=== PATIENT | male | born 1955 | race Caucasian/White ===

== ENCOUNTER 2018-07-08 09:07 | Inpatient (IN) ==
--- NOTE | 2018-07-08 09:54 | ED ---
HPI General Chief complaint: Respiratory Symptoms Stated complaint: Poss FB in throat Time Seen by Provider: 07/08/18 09:15 Source: patient Mode of arrival: ambulatory Limitations: no limitations History of Present Illness HPI narrative: 62 y/o male states yesterday morning he was eating a breakfast burrito and ever since then he is unable to eat or drink or keep anything down. He states he has had this happen to him before ever since he was a kid but it usually goes away on its own. He denies any other concurrent complaints at this time. He denies ever having to have a scope for this. Onset (ago): day(s) Radiation: non-radiation Quality: burning Relieving factors: none Exacerbating factors: eating Treatments prior to arrival: Reports none Related Data Home Medications Medication Instructions Recorded Confirmed amiodarone 200 mg PO BID 07/08/18 07/08/18 apixaban [Eliquis] 5 mg PO BID 07/08/18 07/08/18 carvedilol [Coreg] 3.125 mg PO BID 07/08/18 07/08/18 famotidine [Pepcid] 20 mg PO BID 07/08/18 07/08/18 furosemide 40 mg PO DAILY 07/08/18 07/08/18 lisinopril 20 mg PO DAILY 07/08/18 07/08/18 spironolactone 20 mg PO DAILY 07/08/18 07/08/18 Allergies Allergy/AdvReac Type Severity Reaction Status Date / Time No Known Allergies Allergy Verified 07/08/18 09:46 Review of Systems ROS: all other systems reviewed are negative PMFSH History History Provided By: Patient (Notes 3 weeks ago had cardiac arrest and wearing LifeVest) Medical History Medical History Heart failure (Acute) Social History Social History Substance History: No History of Abuse Smoking Status: Former smoker How Often Do You Have a Drink Containing Alcohol: Never Recent Travel in [facility] within the Last 8 Weeks: No Recent Out of Country Travel within the Last 8 Weeks: No Immunization History Tetanus Immunization: Unsure Exam Narrative Exam Narrative: GENERAL: 62 y/o male in no apparent distress but having difficulty controlling his secretions SKIN: Focused skin assessment warm/dry. HEAD: Atraumatic. Normocephalic. EYES: Pupils equal and round. No scleral icterus. No injection or drainage. ENT: No nasal bleeding or discharge. Mucous membranes pink and moist. NECK: Trachea midline. CARDIOVASCULAR: Regular rate and rhythm. RESPIRATORY: No accessory muscle use. Clear to auscultation. Breath sounds equal bilaterally. GASTROINTESTINAL: Abdomen soft, non-tender, nondistended. MUSCULOSKELETAL: No obvious deformities. No clubbing. No cyanosis. NEUROLOGICAL: Awake and alert. Motor grossly within normal limits. Normal speech. PSYCHIATRIC: Appropriate mood and affect; insight and judgment normal. Course Reevaluation(s) Reevaluation #1: Try glucagon without change, patient agrees to scope Reevaluation #2: When BMP had resulted that showed acute renal failure with concurrent hyperkalemia patient was not in the room so called up to the OR and discuss case with anesthesiologist and updated GI specialist. Consultations Consultation #1: dr rivera agrees to egd and talked with patient at bedside Consultation #2: Anesthesiologist dr oliver states that she will order medications to optimize potassium and give IV fluids. She was notified of all critical lab results and given history and past medical history of patient. dr rivera was updated about lab work and my discussion with the anesthesiologist Consultation #3: dr fritz agrees to admit in intermediate care dr mcqueen will follow along Initial Documented Vital Signs Temperature 98.3 F 07/08/18 09:09 Pulse Rate 89 07/08/18 09:09 Blood Pressure 115/59 L 07/08/18 09:09 Pulse Oximetry 96 07/08/18 09:09 Last Documented Vital Signs Temperature 98.3 F 07/08/18 09:09 Pulse Rate 86 07/08/18 09:21 Respiratory Rate 18 07/08/18 09:21 Blood Pressure 113/67 07/08/18 09:24 Pulse Oximetry 95 07/08/18 11:02 Medical Decision Making MDM Narrative Medical decision making narrative: Patient given a cup of water and with one sip try to swallow but instantly spitted up and looked uncomfortable. Will place IV and try glucagon and discuss with GI Medical Screen Exam Complete: Yes Emergency Medical Condition: Yes Differential Diagnosis Differential Diagnosis: Food bolus causing blockage, stricture, gastritis, tear Lab Data Lab results reviewed: Yes I reviewed the patient's lab results. Result diagrams: 07/08/18 09:40 07/08/18 09:40 Lab Results 07/08/18 07/08/18 Range/Units 09:40 09:40 WBC 9.5 (4.0-11.0) th/mm3 RBC 4.68 (4.50-5.90) mil/mm3 Hgb 17.6 H (13.0-17.0) gm/dL Hct 48.3 (39.0-51.0) % MCV 103.0 H (80.0-100.0) fL MCH 37.6 H (27.0-34.0) pg MCHC 36.5 H (32.0-36.0) % RDW 13.6 (11.6-17.2) % Plt Count 458 H (150-450) th/mm3 MPV 8.6 (7.0-11.0) fL Prelim Diff (Auto) Slide review pending Neut % (Auto) 67.2 (16.0-70.0) % Lymph % (Auto) 15.1 (9.0-44.0) % [place] % (Auto) 15.9 H (0.0-8.0) % Eos % (Auto) 0.8 (0.0-4.0) % Baso % (Auto) 1.0 (0.0-2.0) % Neut # (Auto) 6.4 (1.8-7.7) th/mm3 Lymph # (Auto) 1.4 (1.0-4.8) th/mm3 [place] # (Auto) 1.5 H (0.0-0.9) th/mm3 Eos # (Auto) 0.1 (0.0-0.4) th/mm3 Baso # (Auto) 0.1 (0.0-0.2) th/mm3 WBC Differential . Diff Scan Auto diff confirmed Differential Comment . Sodium 129 L (136-145) meq/L Potassium 5.8 H (3.5-5.1) meq/L Chloride 94 L (98-107) meq/L Carbon Dioxide 27.8 (21.0-32.0) meq/L Anion Gap 7 (5-15) meq/L BUN 92 H (7-18) mg/dL Creatinine 5.68 H (0.60-1.30) mg/dL Estimated GFR 10 L (>89) mL/min Random Glucose 94 (74-106) mg/dL Calcium 9.3 (8.5-10.1) mg/dL Imaging Data Attestation: I personally reviewed and interpreted this imaging study as follows : Discharge Plan Discharge Disposition Patient Disposition: ED Admit(ED Internal Use Only) Discharge Details Diagnosis: Acute renal failure, Esophageal obstruction due to food impaction, Acute hyperkalemia Physicians Team ED Provider: Lupe Joiner Primary Care Provider: UNKNOWN, Attending Provider: Aurelio Fritz Status ED Status: Left Department Discharge Information Discharge Date/Time: 07/08/18 12:02
[2018-07-08 10:18] LABS: Baso # (Auto) 0.1 th/mm3 (0.0-0.2); Eos # (Auto) 0.1 th/mm3 (0.0-0.4); Eos % (Auto) 0.8 % (0.0-4.0); Hematocrit 48.3 % (39.0-51.0); Hemoglobin 17.6 gm/dL (13.0-17.0); Lymph # (Auto) 1.4 th/mm3 (1.0-4.8); Lymph % (Auto) 15.1 % (9.0-44.0); Mean Corpuscular Hemoglobin 37.6 pg (27.0-34.0); Mean Platelet Volume 8.6 fL (7.0-11.0); Mono # (Auto) 1.5 th/mm3 (0.0-0.9); Mono % (Auto) 15.9 % (0.0-8.0); Neut # (Auto) 6.4 th/mm3 (1.8-7.7); Neut % (Auto) 67.2 % (16.0-70.0); Platelet Count 458 th/mm3 (150-450); Red Blood Count 4.68 mil/mm3 (4.50-5.90); Red Cell Distribution Width 13.6 % (11.6-17.2); White Blood Count 9.5 th/mm3 (4.0-11.0)
[2018-07-08 10:20] LABS: Mean Corpuscular HGB Conc 36.5 % (32.0-36.0)
[2018-07-08 11:00] LABS: Calcium 9.3 mg/dL (8.5-10.1); Carbon Dioxide 27.8 meq/L (21.0-32.0); Potassium 5.8 meq/L (3.5-5.1)
[2018-07-08] MEDS ORDERED: Sod Chloride 0.9% Inj 1,000 ML IV.SIG SCH (11:30)
[2018-07-08] MEDS ORDERED: Acetaminophen 325 MG Tablet PO PRN (11:42)
[2018-07-08] MEDS ORDERED: Bisacodyl 10 MG Supp RECTAL PRN (11:42)
[2018-07-08] MEDS ORDERED: Ketamine Inj 50 MG/5 ML Syringe IV.PUSH ONE (12:57)
--- NOTE | 2018-07-08 14:04 | GIPROC ---
[facility] [address] [facility]. [facility], [address] EGD PROCEDURE REPORT EXAM DATE: 07/08/2018 PATIENT NAME: Andrew Acuna MR #: [id number] BIRTHDATE: 1955 ATTENDING: Cesar Leonardo MD ORDER #: [id number] IMPROVEMENT ANALYST: Christie Cobb and Karmen Klein STATUS: outpatient INDICATIONS: The patient is a 62 yr old male here for an EGD due to foreign body removal from esophagus PROCEDURE PERFORMED: EGD w/ fb removal MEDICATIONS: Per Anesthesia and None. TOPICAL ANESTHETIC: none CONSENT: The patient understands the risks and benefits of the procedure and understands that these risks include, but are not limited to: sedation, allergic reaction, infection, perforation and/or bleeding. Alternative means of evaluation and treatment include, among others: physical exam, x-rays, and/or surgical intervention. The patient elects to proceed with this endoscopic procedure. medical equipment was checked for proper function. Hand hygiene and appropriate measures for infection prevention was taken. After the risks, benefits and alternatives of the procedure were thoroughly explained, Informed consent was verified, confirmed and timeout was successfully executed by the treatment team. The patient was anesthetized with topical anesthesia and the Pentax [id number] endoscope was introduced through the mouth and advanced to the second portion of the duodenum. Retroflexion was performed and was normal The gastroscope was then slowly withdrawn and removed. ESOPHAGUS: There was a large amount of residual food seen in the mid esophagus. A Schatzki ring was found in the mid esophagus and distal esophagus and was not passable by the endoscope used. Using a TTS-balloon the stricture was dilated up to 10mm. The balloon was held inflated for 30 seconds. Following this dilation, there was no change in the appearance of the stricture. A medium sized hiatal hernia was noted. Using a TTS-balloon the stricture was dilated up to 13mm. The balloon was held inflated for 30 seconds. Following this dilation, there was a small mucosal rent. STOMACH: The mucosa of the stomach appeared normal. DUODENUM: The duodenal mucosa appeared normal. ADVERSE EVENTS: There were no complications. IMPRESSIONS: 1. There was a large amount of residual food seen in the mid esophagus 2. Schatzki ring was found in the mid esophagus and distal esophagus; Using a TTS-balloon the stricture was dilated up to 10mm; The balloon was held inflated for 30 seconds; Following this dilation, there was no change in the appearance of the stricture, 12mm with no change, then 13.5 with small mucosal rent, scope passed afterward. 3. Medium sized hiatal hernia 4. The mucosa of the stomach appeared normal 5. Normal duodenal mucosa RECOMMENDATIONS: Liquid diet PATIENT CONDITION: stable DISPOSITION: Observation REPEAT EXAM: Return 8 weeks EGD Cesar Leonardo MD eSigned: Cesar Leonardo MD 07/08/2018 2:03 PM cc: PATIENT NAME: Andrew Acuna MR#: [id number]
--- NOTE | 2018-07-08 15:15 | US ---
EXAM DATE: 07/08/2018 2:40 PM EST AGE/SEX: 62 years / Male INDICATIONS: Increased lab values. CLINICAL DATA: This is the patient's initial encounter. Patient reports that signs and symptoms have been present for 1 day and indicates a pain score of 0/10. MEDICAL/SURGICAL HISTORY: Congestive heart failure. None. COMPARISON: No prior exams available for comparison. MEASUREMENTS: Right Kidney:__11.2 x 4.8 x 4.6 cm Left Kidney:__11.8 x 4.3 x 5.3 cm FINDINGS: Right Kidney: Normal echotexture and cortical thickness. No mass or hydronephrosis. Left Kidney: Normal echotexture and cortical thickness. No mass or hydronephrosis. Bladder: Within normal limits given the degree of distension. Other: None. CONCLUSION: 1. Negative renal sonogram. Electronically signed by: Donnie Rea MD 07/08/2018 3:13 PM EST
[2018-07-08] MEDS ORDERED: fentaNYL Citrate Inj 100 MCG/2 ML Ampul ONE (15:25)
--- NOTE | 2018-07-08 15:41 | P.HP ---
History of Present Illness Primary Care Physician: UNKNOWN Chief Complaint: Possible foreign body in the throat History of Present Illness: This is a 62-year-old male with a history of nonischemic cardiomyopathy status post cardiac catheterization on LifeVest and A. fib on Eliquis. Presents to ED for possible foreign body in the throat. Since yesterday morning after having breakfast burrito, he has not been able to eat or drink or keep anything down. States he always has problems swallowing pills. Denies chest pain, shortness of breath, abdominal pain, dizziness and palpitations. He was also found to be in acute renal failure BUN of 92 creatinine 5.68 and potassium of 5.8. EKG independently reviewed by me with sinus rhythm, IVCD with no significant change from previous. Denies voiding difficulties, history of renal failure and use of NSAIDs. He has been recently started on furosemide, Aldactone and lisinopril because of heart failure. Patient received IV fluid bolus in the ED and underwent urgent EGD for removal of foreign body impaction in the esophagus after treatment of hyperkalemia. At this time, patient has no complaints seen in [facility]. Telemetry shows sinus rhythm. Systolic blood pressure in the 90s. All other systems reviewed negative. Case discussed with nephrology. Inpatient Certification: I certify that the inpatient services were ordered in accordance with Medicare regulations governing the order. This includes certification that hospital inpatient services are reasonable and necessary and in the case of services not specified as inpatient-only under 42 CFR 419.22(n), that they are appropriately provided as inpatient services in accordance to with the 2-midnight benchmark under 43 CFR 412.3(e) Estimated Total Length of Stay (Days): 2 Plans for Post Hospital Care: Not yet determined Review of Systems All other systems reviewed negative except as stated in HPI PMFSH - History History Provided By: Patient, Significant Other - Medical History Medical History: Medical History (Last Reviewed 07/08/18 @ 15:35 by Aurelio Fritz MD) Cardiac arrest GERD (gastroesophageal reflux disease) Schatzki's ring Heart failure - Surgical History Surgical History: Surgical History (Last Reviewed 07/08/18 @ 15:35 by Aurelio Fritz MD) Hx of cardiac cath - Family History Family History: Family History (Last Updated 07/08/18 @ 15:35 by Aurelio Fritz MD) Other Family history of acute myocardial infarction - Social History I have reviewed the patient's Social History: Yes - Tobacco History Second Hand Smoke Exposure: Yes Tobacco Use In Past 30 Days: Yes Smoking Status: Former smoker Tobacco Type: Cigarettes - Alcohol History How Often Do You Have a Drink Containing Alcohol: 2 to 3 times a week - Substance Use History Substance History: No History of Abuse - Travel History Recent Travel in the [place] Within the Last 8 Weeks: No Recent Travel Out of the Country Within the Last 8 Weeks: No - Immunization History Tetanus Immunization: Unsure Medications and Allergies Active Medications: Active Medications Acetaminophen (Tylenol) 650 mg PO Q4H PRN PRN Reason: Temp > 100.4 Amiodarone HCl (Cordarone) 200 mg PO BID CONSTANTINE Apixaban (Eliquis) 5 mg PO BID CONSTANTINE Bisacodyl (Dulcolax Supp) 10 mg RECTAL DAILY PRN PRN Reason: SEVERE CONSITIPATION Carvedilol (Coreg) 3.125 mg PO BID CONSTANTINE Famotidine (Pepcid) 10 mg PO BID CONSTANTINE Sodium Chloride (Ns Inj) 1,000 mls @ 60 mls/hr IV.CONT .[id number] CONSTANTINE Lactulose (Lactulose Liq) 30 ml PO DAILY PRN PRN Reason: SEVERE CONSITIPATION Miscellaneous Information (Misc Nursing Information) 0 each OTHER UNSCH PRN PRN Reason: SEE LABEL COMMENTS Stop: 07/09/18 14:11 Ondansetron HCl (Zofran Inj) 4 mg IV.PUSH Q6H PRN PRN Reason: NAUSEA OR VOMITING Senna/Docusate Sodium (Genoveva-Colace) 1 tab PO BID CONSTANTINE Sennosides (Senokot) 17.2 mg PO Q12H PRN PRN Reason: Moderate Constipation Sodium Chloride (Ns Flush) 2 ml IV.FLUSH BID CONSTANTINE Sodium Chloride (Ns Flush) 2 ml IV.FLUSH PRN PRN PRN Reason: FLUSH AFTER USING IV ACCESS Allergies Allergy/AdvReac Type Severity Reaction Status Date / Time No Known Allergies Allergy Verified 07/08/18 09:46 Home Medications Medication Instructions Recorded Confirmed Type amiodarone 200 mg PO BID 07/08/18 07/08/18 History apixaban [Eliquis] 5 mg PO BID 07/08/18 07/08/18 History carvedilol [Coreg] 6.25 mg PO BID 07/08/18 07/08/18 History famotidine [Pepcid] 20 mg PO BID 07/08/18 07/08/18 History furosemide 40 mg PO DAILY 07/08/18 07/08/18 History lisinopril 20 mg PO DAILY 07/08/18 07/08/18 History spironolactone 20 mg PO DAILY 07/08/18 07/08/18 History Exam Vital signs: Vital Signs 07/08/18 09:09 07/08/18 09:21 07/08/18 09:24 Temperature 98.3 F Pulse Rate 89 86 Respiratory Rate 18 Blood Pressure 115/59 L 113/67 Pulse Oximetry 96 95 07/08/18 11:02 07/08/18 12:00 Temperature Pulse Rate 79 Respiratory Rate 20 Blood Pressure 90/52 L Pulse Oximetry 95 99 Intake & Output 07/07/18 07/08/18 07/08/18 18:59 06:59 18:59 Intake Total 1999 Balance 1999 Weight 81.64 kg Intake: IV 1000 / 1000 NS Inj 1,000 ML @ 1000 mls/hr 1000 / 1000 IV.SIG BOLUS [facility] Rx#:[id number] Anesthesia Amount 1000 / 1000 Other: Weight On Admission 81.647 kg Narrative: GENERAL: Well-developed, well-nourished in no distress SKIN: Warm and dry. HEAD: Atraumatic. Normocephalic. EYES: Pupils equal and round. No scleral icterus. No injection or drainage. ENT: No nasal bleeding or discharge. Mucous membranes pink and moist. NECK: Trachea midline. No JVD. CARDIOVASCULAR: Regular rate and rhythm. LifeVest in place RESPIRATORY: No accessory muscle use. Clear to auscultation. Breath sounds equal bilaterally. GASTROINTESTINAL: Abdomen soft, non-tender, nondistended. MUSCULOSKELETAL: Extremities without clubbing, cyanosis, or edema. No obvious deformities. NEUROLOGICAL: Awake and alert. No obvious cranial nerve deficits. Motor grossly within normal limits. Five out of 5 muscle strength in the arms and legs. Normal speech. PSYCHIATRIC: Appropriate mood and affect; insight and judgment normal. Results - Labs CBC & Chem 7: 07/08/18 09:40 07/08/18 09:40 Labs: Laboratory Results - last 24 hr 07/08/18 07/08/18 09:40 09:40 WBC 9.5 RBC 4.68 Hgb 17.6 H Hct 48.3 MCV 103.0 H MCH 37.6 H MCHC 36.5 H RDW 13.6 Plt Count 458 H MPV 8.6 Prelim Diff (Auto) Slide review pending Neut % (Auto) 67.2 Lymph % (Auto) 15.1 [place] % (Auto) 15.9 H Eos % (Auto) 0.8 Baso % (Auto) 1.0 Neut # (Auto) 6.4 Lymph # (Auto) 1.4 [place] # (Auto) 1.5 H Eos # (Auto) 0.1 Baso # (Auto) 0.1 WBC Differential . Diff Scan Auto diff confirmed Differential Comment . Sodium 129 L Potassium 5.8 H Chloride 94 L Carbon Dioxide 27.8 Anion Gap 7 BUN 92 H Creatinine 5.68 H Estimated GFR 10 L Random Glucose 94 Calcium 9.3 - Imaging Impressions Abdomen/Bladder Ultrasound 07/08/18 00:00 CONCLUSION: 1. Negative renal sonogram. Caprini VTE Risk Assessment Caprini VTE Risk Assessment: Moderate/High Risk (score >= 2) Caprini Risk Assessment Model: Point Value = 1 Point Value = 2 Point Value = 3 Point Value = 5 Age 41-60 Minor surgery BMI > 25 kg/m2 Swollen legs Varicose veins or History of unexplained or recurrent spontaneous Oral contraceptives or hormone replacement Sepsis (< 1 month) Serious lung disease, including pneumonia (< 1 month) Abnormal pulmonary function Acute myocardial infarction Congestive heart failure (< 1 month) History of inflammatory bowel disease Medical patient at bed rest Age 61-74 Arthroscopic surgery Major open surgery (> 45 min) Laparoscopic surgery (> 45 min) Malignancy Confined to bed (> 72 hours) Immobilizing plaster cast Central venous access Age >= 75 History of VTE Family history of VTE Factor V Leiden Prothrombin [id number] Lupus anticoagulant Anticardiolipin antibodies Elevated serum homocysteine Heparin-induced thrombocytopenia Other congenital or acquired thrombophilia Stroke (< 1 month) Elective arthroplasty Hip, pelvis, or leg fracture Acute spinal cord injury (< 1 month) Prophylaxis Regimen: Total Risk Factor Score Risk Level Prophylaxis Regimen 0-1 Low Early ambulation 2 Moderate Order ONE of the following: *Sequential Compression Device (SCD) *Heparin 5000 units SQ BID 3-4 Higher Order ONE of the following medications: *Heparin 5000 units SQ TID *Enoxaparin/Lovenox 40 mg SQ daily (WT < 150 kg, CrCl > 30 mL/min) *Enoxaparin/Lovenox 30 mg SQ daily (WT < 150 kg, CrCl > 10-29 mL/min) *Enoxaparin/Lovenox 30 mg SQ BID (WT < 150 kg, CrCl > 30 mL/min) AND/OR *Sequential Compression Device (SCD) 5 or more Highest Order ONE of the following medications: *Heparin 5000 units SQ TID (Preferred with Epidurals) *Enoxaparin/Lovenox 40 mg SQ daily (WT < 150 kg, CrCl > 30 mL/min) *Enoxaparin/Lovenox 30 mg SQ daily (WT < 150 kg, CrCl > 10-29 mL/min) *Enoxaparin/Lovenox 30 mg SQ BID (WT < 150 kg, CrCl > 30 mL/min) AND *Sequential Compression Device (SCD) Assessment and Plan - Plan This is a 62-year-old male with a history of nonischemic cardiomyopathy status post cardiac catheterization on LifeVest and A. fib on Eliquis. Presents to ED for possible foreign body in the throat. Foreign body impaction in the esophagus status post EGD with foreign body removal. Continue liquid diet advance per GI, start IV hydration monitor for fluid overload and PPI. Acute renal failure with hyponatremia and hyperkalemia. Nonoliguric. Ultrasound showed no obstruction. Check urinalysis and eosinophils. Continue IV hydration as above. Avoid nephrotoxins hold lisinopril, Aldactone and Lasix. Consult nephrology. Repeat BMP stat monitor on telemetry DVT proph with SCD and Eliquis Discharge Planning: When renal function improves
[2018-07-08] MEDS: Sod Chloride 0.9% Inj 1,000 ML IV.CONT SCH (16:08)
[2018-07-08 16:47] LABS: Baso % (Auto) 0.5 % (0.0-2.0); Eos % (Auto) 0.2 % (0.0-4.0); Hematocrit 44.6 % (39.0-51.0); Hemoglobin 15.4 gm/dL (13.0-17.0); Lymph # (Auto) 0.6 th/mm3 (1.0-4.8); Lymph % (Auto) 6.1 % (9.0-44.0); Mean Corpuscular HGB Conc 34.5 % (32.0-36.0); Mean Corpuscular Hemoglobin 35.4 pg (27.0-34.0); Mean Corpuscular Volume 102.6 fL (80.0-100.0); Mean Platelet Volume 8.2 fL (7.0-11.0); Mono # (Auto) 0.6 th/mm3 (0.0-0.9); Mono % (Auto) 6.4 % (0.0-8.0); Neut % (Auto) 86.8 % (16.0-70.0); Platelet Count 395 th/mm3 (150-450); Red Blood Count 4.34 mil/mm3 (4.50-5.90); Red Cell Distribution Width 13.5 % (11.6-17.2); White Blood Count 9.3 th/mm3 (4.0-11.0)
[2018-07-08 17:10] LABS: Calcium 8.4 mg/dL (8.5-10.1); Carbon Dioxide 24.2 meq/L (21.0-32.0); Magnesium 3.2 mg/dL (1.5-2.5); Potassium 6.5 meq/L (3.5-5.1)
[2018-07-08] MEDS ORDERED: Sodium Polystyrene Sulfonate/Sorbitol Liq 15 GM/60 ML UDC PO ONE ×2 (18:15→22:00)
[2018-07-08] MEDS ORDERED: Sodium Bicarbonate 8.4% Inj 50 MEQ/50 ML Syringe IV.PUSH ONE (18:15)
[2018-07-08] MEDS ORDERED: Calcium Chloride Inj 1 GM/10 ML Syringe IV.PUSH ONE (18:15)
[2018-07-08] MEDS ORDERED: Sodium Chlor 0.9% Inj 500 ML IV.SIG ONE (19:33)
--- NOTE | 2018-07-08 19:44 | MB ---
cc: Cesar Leonardo MD DATE: 07/08/2018 TYPE OF CONSULTATION: GI consult. REASON FOR CONSULTATION: Foreign body impaction. HISTORY OF PRESENT ILLNESS: This is a 62-year-old male patient, known case of nonischemic cardiomyopathy who had cardiac catheterization 3 weeks ago and also known to have atrial fibrillation, on Eliquis. The patient presented to the emergency room after eating a burrito for breakfast yesterday. Since that time has been unable to swallow anything down, including his own saliva. The patient is very uncomfortable and is drooling all the time. GI is consulted for further evaluation and possible removing of a foreign body. REVIEW OF SYSTEMS: All 14 points review of systems negative, except the ones mentioned in the history of present illness. PAST MEDICAL HISTORY: 1. Cardiomyopathy. 2. History of atrial fibrillation. 3. Gastroesophageal reflux disease. 4. Heart failure. PAST SURGICAL HISTORY: History of cardiac catheterization 3 weeks ago. No previous endoscopy or colonoscopy in the past. FAMILY HISTORY: Positive for acute ID in his first-degree relative. SOCIAL HISTORY: The patient is an ex-smoker, drinks alcohol infrequently. Denies IV drug abuse. MEDICATIONS: 1. Amiodarone. 2. Eliquis. 3. Carvedilol. 4. Promethazine. 5. Lactulose. 6. Zofran. 7. Colace. ALLERGIES: NO KNOWN DRUG ALLERGIES. PHYSICAL EXAMINATION: GENERAL: The patient was found to be comfortable, not in distress or in pain. Hemodynamically stable. VITAL SIGNS: Temperature 98.3, pulse 89, respiratory rate of 18, blood pressure 115/60. HEENT: Normocephalic, atraumatic. Pupils equal, round, reactive to light. NECK: Supple neck. No lymphadenopathy. No thyromegaly. CHEST: Labored breathing, difficulty and taking deep breath, but good air entry bilaterally. HEART: Regular rate and rhythm, with no murmurs. ABDOMEN: Soft, nontender. No hepatosplenomegaly. No palpable masses. EXTREMITIES: Normal pulses. No edema. NEUROLOGIC: Cranial nerves 2-12 grossly intact. No focal deficits. SKIN: No rashes. LABORATORY DATA: Pending. ASSESSMENT AND PLAN: This is a 62-year-old male patient with history of the following problems: 1. Food impaction of several hours duration, causing excessive salivation and inability to swallow. 2. History of recurrent dysphagia for several years. Never investigated before. 3. Chronic gastroesophageal reflux. 4. Significant cardiac history in the form of cardiomyopathy requiring anticoagulation. RECOMMENDATION: We will keep him n.p.o. for the time being. We will proceed with endoscopic evaluation and food removal and possible dilatation of the esophagus. Depending upon the findings, we will continue the patient on the current treatment plan. Check labs were sent and are pending. Check EKG. Anesthesia clearance. Further recommendations to follow. MD CHRISSY Proctor/nba , 05:56 PM , 06:07 PM
[2018-07-08] MEDS: Famotidine 20 MG Tablet PO SCH (20:01)
[2018-07-08] MEDS: Amiodarone 200 MG Tablet PO SCH (20:01)
[2018-07-08] MEDS: Senna/Docusate Sodium 8.6/50 MG Tablet PO SCH (20:05)
[2018-07-08 20:33] LABS: Bilirubin,Urine Negative (Negative); Clarity,Urine Hazy (Clear); Color,Urine Yellow (Yellw/Straw); Glucose,Urine (UA) Negative (Negative); Hyaline Casts,Urine 32 /lpf (0-3); Leukocyte Esterase,Urine Negative (Negative); Mucus,Urine Few /lpf (Occasional); Nitrite,Urine Negative (Negative); Specific Gravity,Urine 1.017 (1.002-1.035); Squamous Epithelial Cell,Urine 1 /hpf (0-5)
[2018-07-08] MEDS ORDERED: Calcium Gluconate Inj 1 GM in Sodium Chlor 0.9% Inj 100 ML IV.SIG ONE (22:00)
[2018-07-08 22:49] LABS: Potassium,Urine Random 25 meq/L; Sodium,Urine Random 59 meq/L
--- NOTE | 2018-07-08 23:36 | MB ---
cc: Ivon Garcia MD DATE: 07/08/2018 REASON FOR CONSULTATION: Elevated BUN and creatinine, for evaluation. HISTORY OF PRESENT ILLNESS: This is a 62-year-old male with a past medical history of nonischemic cardiomyopathy, atrial fibrillation, gastroesophageal reflux disease, was admitted mainly because of possible foreign body in the throat. I was called to see the patient because of very high BUN and creatinine. The patient denies any previous history of renal disease and his creatinine in January of this year was 0.8 and now he came with a creatinine of 5.6 and also has hyperkalemia with a potassium of 5.8 on admission and now it is 6.5. The patient denies any previous history of renal disease and he has been followed by the cardiology and since yesterday he noticed that he is not able to eat or bring anything down and has some pain in his throat and feels like there is something stuck in his throat. He has been recently started on diuretic including Lasix, Aldactone and lisinopril because of the heart failure. In the emergency department, the patient was given bolus IV fluid and he went for urgent endoscopy with removal of foreign body impacted in the esophagus. He also got some treatment for hyperkalemia in the emergency department. The patient denies any dysuria or hematuria, did not notice any decrease in the urine output. There is no history of renal stones. Denies taking any nonsteroidal anti-inflammatory drugs. PAST MEDICAL HISTORY: 1. Cardiomyopathy, nonischemic. 2. Gastroesophageal reflux disease. 3. History of cardiac arrest. PAST SURGICAL HISTORY: 1. History of cardiac cath. 2. Just had endoscopy done. REVIEW OF SYSTEMS: The patient denies any history of headache, dizziness or blurring of vision. No history of fever. He has this foreign body impaction and difficulty swallowing in throat, it started yesterday. He denies any nausea or vomiting. There is no history of diarrhea. No shortness of breath. No chest pain. No abdominal pain. No history of dysuria, hematuria or difficulty in passing urine. Denies taking any nonsteroid anti-inflammatory drugs. Did not notice any decrease in the urine output. SOCIAL HISTORY: The patient is . Has past history of smoking. Occasionally drinks alcoholic beverages. FAMILY HISTORY: Noncontributory. ALLERGIES: HE HAS NO KNOWN DRUG ALLERGIES. MEDICATIONS: Currently, he is on following medications: 1. Tylenol as needed. 2. DuoNeb as needed. 3. Eliquis 5 mg b.i.d. 4. Cordarone 200 mg b.i.d. 5. Dulcolax suppository p.r.n. 6. Coreg 3.125 mg p.o. b.i.d. 7. Famotidine 10 mg b.i.d. 8. Lactulose 30 mL p.r.n. 9. Zofran as needed. 10. Genoveva-Colace one tablet b.i.d. 11. The patient received Kayexalate and supposed to get another dose around 10 p.m. 12. He also received calcium gluconate, sodium bicarbonate. PHYSICAL EXAMINATION: GENERAL: The patient is awake, alert. He is not in acute distress. VITAL SIGNS: His last blood pressure recorded is 124/69, but he has some low blood pressure readings of 81/51 in between, temperature is 97.4, oxygen saturation on 2 liters nasal cannula 96-100%. HEENT: Pupils are mid constricted. Nonicteric sclerae. Conjunctivae normal. NECK: Supple. JVD is not elevated. LUNGS: He has bilateral equal air entry with occasional wheezing. HEART: S1, S2. Regular rate and rhythm. ABDOMEN: Soft and lax. There is no tenderness. Bowel sounds positive. EXTREMITIES: There is no pedal edema. INVESTIGATIONS: WBC count is 9.3, hemoglobin 15.4 with platelet count of 395, neutrophils 86%, eosinophils 0.2%. Sodium is 131, potassium 6.5, chloride 98, bicarbonate 24.2, BUN 90, creatinine 5.76, calcium is 8.4, magnesium is 3.2. Urinalysis showing that there is protein of 30. Previously, the patient has a creatinine of 0.8. This was on 02/03/2018. IMAGING STUDIES: The patient has ultrasound of kidneys done, which shows that he has normal-sized kidneys. There is no hydronephrosis. There is no distention of the bladder. ASSESSMENT AND PLAN: 1. Acute kidney injury. 2. Hyperkalemia. 3. Impacted foreign body in the throat. 4. Dehydration. 5. History of cardiomyopathy. The patient has a very high BUN and creatinine. Previously, he has normal creatinine. He does not have too much proteinuria. He has hyperkalemia, which is possibly due to the lisinopril and spironolactone that he was taking. I will check the urine sodium, osmolality and urine potassium. I will give him more treatment for the hyperkalemia and put him on some gentle hydration and follow the urine output and the BUN and creatinine. If potassium and the BUN and creatinine does not improve, he may really need urgent dialysis. We will keep a close eye on the urine output and the BMP. Thank you for the consultation. I will follow the patient while he is in the hospital. MD KEN Sylvester/zeinab/veronica , 08:35 PM , 08:46 PM
[2018-07-09 00:34] LABS: Calcium 9.2 mg/dL (8.5-10.1); Carbon Dioxide 24.6 meq/L (21.0-32.0); Magnesium 2.9 mg/dL (1.5-2.5); Potassium 5.3 meq/L (3.5-5.1)
[2018-07-09] MEDS ORDERED: Sodium Polystyrene Sulfonate Powder 15 GM Bottle PO ONE (05:00)
--- NOTE | 2018-07-09 08:15 | P.PN ---
Subjective Interval history: F/U FB impaction and ARF. Patient has no new complaints tolerating liquid diet. Voiding. Discussed with nephrology. Physical Exam Vital signs: Vital Signs 07/08/18 09:09 07/08/18 09:21 07/08/18 09:24 Temperature 98.3 F Pulse Rate 89 86 Respiratory Rate 18 Blood Pressure 115/59 L 113/67 Pulse Oximetry 96 95 07/08/18 11:02 07/08/18 12:00 07/08/18 14:10 Temperature 98.3 F Pulse Rate 79 87 Respiratory Rate 20 18 Blood Pressure 90/52 L 125/76 Pulse Oximetry 95 99 100 07/08/18 14:30 07/08/18 14:45 07/08/18 20:00 Temperature 98.4 F 97.4 F L Pulse Rate 81 79 77 Respiratory Rate 20 15 16 Blood Pressure 81/51 L 82/52 L 124/69 Pulse Oximetry 100 100 96 07/08/18 21:03 07/08/18 23:05 07/09/18 00:00 Temperature 97.8 F Pulse Rate 73 67 69 Respiratory Rate 16 20 15 Blood Pressure 107/60 Pulse Oximetry 96 96 07/09/18 04:00 07/09/18 08:00 Temperature 98.2 F Pulse Rate 54 L 61 Respiratory Rate 15 Blood Pressure 111/58 L Pulse Oximetry 98 Intake & Output 07/08/18 07/09/18 07/09/18 18:59 06:59 18:59 Intake Total 2960 / 2960 350 / 350 Output Total 1100 / 1100 Balance 2960 / 2960 -750 / -750 Weight 81.64 kg 81.5 kg Intake: IV 1000 / 1000 110 / 110 Calcium Gluconate Inj 1 GM In 110 / 110 NS Inj 100 ML @ 110 mls/hr IV. SIG ONCE ONE Rx#:[id number] NS Inj 1,000 ML @ 1000 mls/hr 1000 / 1000 IV.SIG BOLUS [facility] Rx#:[id number] Oral 960 / 960 240 / 240 Anesthesia Amount 1000 / 1000 Output: Urine 1100 / 1100 Other: Date of Last Bowel Movement 07/07/18 Weight On Admission 81.647 kg Narrative: GENERAL: Well-developed, well-nourished in no distress SKIN: Warm and dry. CARDIOVASCULAR: Regular rate and rhythm. LifeVest in place RESPIRATORY: No accessory muscle use. Clear to auscultation. Breath sounds equal bilaterally. GASTROINTESTINAL: Abdomen soft, non-tender, nondistended. MUSCULOSKELETAL: Extremities without clubbing, cyanosis, or edema. No obvious deformities. NEUROLOGICAL: Awake and alert. No obvious cranial nerve deficits. Motor grossly within normal limits. Five out of 5 muscle strength in the arms and legs. Normal speech. PSYCHIATRIC: Appropriate mood and affect; insight and judgment normal. Results - Labs CBC & Chem 7: 07/08/18 16:14 07/09/18 06:55 Laboratory Results - last 24 hr 07/08/18 07/08/18 07/08/18 09:40 09:40 16:14 WBC 9.5 9.3 RBC 4.68 4.34 L Hgb 17.6 H 15.4 D Hct 48.3 44.6 MCV 103.0 H 102.6 H MCH 37.6 H 35.4 H MCHC 36.5 H 34.5 RDW 13.6 13.5 Plt Count 458 H 395 MPV 8.6 8.2 Prelim Diff (Auto) Slide review pending Neut % (Auto) 67.2 86.8 H Lymph % (Auto) 15.1 6.1 L Atlantic % (Auto) 15.9 H 6.4 Eos % (Auto) 0.8 0.2 Baso % (Auto) 1.0 0.5 Neut # (Auto) 6.4 8.0 H Lymph # (Auto) 1.4 0.6 L [place] # (Auto) 1.5 H 0.6 Eos # (Auto) 0.1 0.0 Baso # (Auto) 0.1 0.0 WBC Differential . . Diff Scan Auto diff confirmed Differential Comment . Auto diff final Sodium 129 L Potassium 5.8 H Chloride 94 L Carbon Dioxide 27.8 Anion Gap 7 BUN 92 H Creatinine 5.68 H Estimated GFR 10 L Random Glucose 94 Calcium 9.3 Magnesium Urine Color Urine Clarity Urine pH Ur Specific [place] Urine Protein Urine Glucose (UA) Urine Ketones Urine Occult Blood Urine Nitrate Urine Bilirubin Urine Urobilinogen Ur Leukocyte Esterase Urine RBC Urine WBC Ur Squamous Epith Cells Hyaline Casts Urine Mucus Micro UA Comment Ur Microscopic Review Urine Culture Comments Urine Eosinophils Urine Osmolality Ur Random Sodium Ur Random Potassium 07/08/18 07/08/18 07/08/18 16:14 18:28 22:15 WBC RBC Hgb Hct MCV MCH MCHC RDW Plt Count MPV Prelim Diff (Auto) Neut % (Auto) Lymph % (Auto) Atlantic % (Auto) Eos % (Auto) Baso % (Auto) Neut # (Auto) Lymph # (Auto) [place] # (Auto) Eos # (Auto) Baso # (Auto) WBC Differential Diff Scan Differential Comment Sodium 131 L Potassium 6.5 H Chloride 98 Carbon Dioxide 24.2 Anion Gap 9 BUN 90 H Creatinine 5.76 H Estimated GFR 10 L Random Glucose 93 Calcium 8.4 L D Magnesium 3.2 H Urine Color Yellow Urine Clarity Hazy H Urine pH 5.0 Ur Specific [place] 1.017 Urine Protein 30 H Urine Glucose (UA) Negative Urine Ketones Trace H Urine Occult Blood Negative Urine Nitrate Negative Urine Bilirubin Negative Urine Urobilinogen Less than 2 Ur Leukocyte Esterase Negative Urine RBC Less than 1 Urine WBC 2 Ur Squamous Epith Cells 1 Hyaline Casts 32 Urine Mucus Few H Micro UA Comment Culture not ind Ur Microscopic Review Not Reportable Urine Culture Comments Culture not ind Urine Eosinophils None seen Urine Osmolality Ur Random Sodium Ur Random Potassium 07/08/18 07/08/18 07/09/18 22:15 22:15 00:00 WBC RBC Hgb Hct MCV MCH MCHC RDW Plt Count MPV Prelim Diff (Auto) Neut % (Auto) Lymph % (Auto) Atlantic % (Auto) Eos % (Auto) Baso % (Auto) Neut # (Auto) Lymph # (Auto) [place] # (Auto) Eos # (Auto) Baso # (Auto) WBC Differential Diff Scan Differential Comment Sodium 131 L Potassium 5.3 H D Chloride 99 Carbon Dioxide 24.6 Anion Gap 7 BUN 84 H Creatinine 4.16 H Estimated GFR 15 L Random Glucose 163 H Calcium 9.2 D Magnesium 2.9 H Urine Color Urine Clarity Urine pH Ur Specific [place] Urine Protein Urine Glucose (UA) Urine Ketones Urine Occult Blood Urine Nitrate Urine Bilirubin Urine Urobilinogen Ur Leukocyte Esterase Urine RBC Urine WBC Ur Squamous Epith Cells Hyaline Casts Urine Mucus Micro UA Comment Ur Microscopic Review Urine Culture Comments Urine Eosinophils Urine Osmolality 462 Ur Random Sodium 59 Ur Random Potassium 25 - Imaging Impressions Abdomen/Bladder Ultrasound 07/08/18 00:00 CONCLUSION: 1. Negative renal sonogram. - Procedures EGD Assessment and Plan - Plan This is a 62-year-old male with a history of nonischemic cardiomyopathy status post cardiac catheterization on LifeVest and A. fib on Eliquis. Presents to ED for possible foreign body in the throat. Foreign body impaction in the esophagus status post EGD with foreign body removal. Stable Continue liquid diet advance per GI, IV hydration monitor for fluid overload and PPI. Acute renal failure with hyponatremia and hyperkalemia. Nonoliguric. Ultrasound showed no obstruction. Neg eosinophils. Improving Continue IV hydration as above and tx for hyperkalemia patient received IV sodium bicarb, IV calcium chloride, IV insulin, nebulizations and Kayexalate. Avoid nephrotoxins hold lisinopril, Aldactone and Lasix. Consulted nephrology. Repeat BMP in the morning monitor on telemetry DVT proph with SCD and Eliquis Discharge Planning: When renal function improves
[2018-07-09 08:22] LABS: Calcium 8.5 mg/dL (8.5-10.1); Carbon Dioxide 24.5 meq/L (21.0-32.0); Potassium 4.6 meq/L (3.5-5.1)
[2018-07-09] MEDS: Amiodarone 200 MG Tablet PO SCH ×2 (09:14→20:16)
[2018-07-09] MEDS: Famotidine 20 MG Tablet PO SCH ×2 (09:14→20:17)
[2018-07-09] MEDS: Senna/Docusate Sodium 8.6/50 MG Tablet PO SCH ×2 (09:19→20:19)
[2018-07-09] MEDS: Sod Chloride 0.9% Inj 1,000 ML IV.CONT SCH (10:53)
--- NOTE | 2018-07-09 17:02 | P.PNNP ---
Subjective Interval history: Patient seen in AM, not in distress, no SOB. Physical Exam Vital signs: Vital Signs 07/08/18 20:00 07/08/18 21:03 07/08/18 23:05 Temperature 97.4 F L Pulse Rate 77 73 67 Respiratory Rate 16 16 20 Blood Pressure 124/69 Pulse Oximetry 96 96 07/09/18 00:00 07/09/18 04:00 07/09/18 08:00 Temperature 97.8 F 98.2 F Pulse Rate 69 54 L 61 Respiratory Rate 15 15 Blood Pressure 107/60 111/58 L Pulse Oximetry 96 98 07/09/18 08:45 07/09/18 13:56 Temperature 97.8 F 98.2 F Pulse Rate 55 L 54 L Respiratory Rate 16 16 Blood Pressure 114/65 91/56 L Pulse Oximetry 98 Intake & Output 07/08/18 07/09/18 07/09/18 18:59 06:59 18:59 Intake Total 2960 / 2960 350 / 350 1000 / 1000 Output Total 1100 / 1100 Balance 2960 / 2960 -750 / -750 1000 / 1000 Weight 81.64 kg 81.5 kg Intake: IV 1000 / 1000 110 / 110 1000 / 1000 NS Inj 1,000 ML @ 60 mls/hr IV. 1000 / 1000 CONT .[id number] [facility] Rx#:[id number] Calcium Gluconate Inj 1 GM In 110 / 110 NS Inj 100 ML @ 110 mls/hr IV. SIG ONCE ONE Rx#:[id number] NS Inj 1,000 ML @ 1000 mls/hr 1000 / 1000 IV.SIG BOLUS [facility] Rx#:[id number] Oral 960 / 960 240 / 240 Anesthesia Amount 1000 / 1000 Output: Urine 1100 / 1100 Other: Date of Last Bowel Movement 07/07/18 07/09/18 Weight On Admission 81.647 kg Narrative: GENERAL: Well-developed, well-nourished in no distress SKIN: Warm and dry. CARDIOVASCULAR: Regular rate and rhythm. LifeVest in place RESPIRATORY: No accessory muscle use. Clear to auscultation. Breath sounds equal bilaterally. GASTROINTESTINAL: Abdomen soft, non-tender, nondistended. MUSCULOSKELETAL: Extremities without clubbing, cyanosis, or edema. No obvious deformities. NEUROLOGICAL: Awake and alert. No obvious cranial nerve deficits. Motor grossly within normal limits. Five out of 5 muscle strength in the arms and legs. Normal speech. PSYCHIATRIC: Appropriate mood and affect; insight and judgment normal. Assessment and Plan - Assessment (1) Acute renal failure Code(s): N17.9 - Acute kidney failure, unspecified Status: Acute Qualifiers: Acute renal failure type: unspecified Qualified Code(s): N17.9 - Acute kidney failure, unspecified (2) Esophageal obstruction due to food impaction Code(s): K22.2 - Esophageal obstruction; T18.128A - Food in esophagus causing other injury, initial encounter Status: Acute (3) Acute hyperkalemia Code(s): E87.5 - Hyperkalemia Status: Acute - Plan Patient with Acute kidney injury and Hyperkalemia. Most likely has an element of pre renal, and Hyperkalemia was due to Lisinopril and Aldactone was also contributing to high K level. Now the Creatinine is improving and K is normalized. Continue to hold the diuretics, follow the urine out put and BMP.
--- NOTE | 2018-07-09 20:15 | ECG ---
Date Performed: 07/08/2018 Time Performed: 11:37:50 PTAGE: 62 years EKG: Sinus rhythm INDETERMINATE AXIS MODERATE INTRAVENTRICULAR CONDUCTION DELAY BORDERLINE ECG PREVIOUS TRACING : 02/03/2018 07.45 Since the previous tracing, no significant change noted DOCTOR: Paige Aaron Interpretating Date/Time 07/09/2018 20:05:08
[2018-07-09 23:45] LABS: Calcium 7.8 mg/dL (8.5-10.1); Carbon Dioxide 28.5 meq/L (21.0-32.0); Magnesium 2.5 mg/dL (1.5-2.5); Potassium 4.2 meq/L (3.5-5.1)
[2018-07-10] MEDS: Sod Chloride 0.9% Inj 1,000 ML IV.CONT SCH (04:10)
[2018-07-10] MEDS: Senna/Docusate Sodium 8.6/50 MG Tablet PO SCH (07:51)
[2018-07-10] MEDS: Famotidine 20 MG Tablet PO SCH (08:06)
[2018-07-10] MEDS: Amiodarone 200 MG Tablet PO SCH (08:07)
[2018-07-10 08:18] VITALS: RESP 16
--- NOTE | 2018-07-10 08:28 | P.PN ---
Subjective Interval history: Follow-up foreign body impaction and acute renal failure. Doing ok voiding no SOB Physical Exam Vital signs: Vital Signs 07/09/18 08:45 07/09/18 12:00 07/09/18 13:56 Temperature 97.8 F 98.2 F Pulse Rate 55 L 52 L 54 L Respiratory Rate 16 16 Blood Pressure 114/65 91/56 L Pulse Oximetry 98 07/09/18 16:00 07/09/18 18:35 07/09/18 20:00 Temperature 98.3 F 98.7 F Pulse Rate 54 L 58 L Respiratory Rate 18 Blood Pressure 91/56 L 119/69 139/65 Pulse Oximetry 97 97 07/09/18 20:25 07/09/18 23:52 07/10/18 00:00 Temperature 97.8 F Pulse Rate 60 46 L 43 L Respiratory Rate 18 Blood Pressure 90/47 L Pulse Oximetry 07/10/18 04:00 07/10/18 07:51 Temperature 98.1 F 98.5 F Pulse Rate 49 L 55 L Respiratory Rate 18 16 Blood Pressure 120/72 131/76 Pulse Oximetry 96 Intake & Output 07/09/18 07/10/18 07/10/18 18:59 06:59 18:59 Intake Total 1000 / 1000 1590 / 1590 Output Total 1300 / 1300 2150 / 2150 Balance -300 / -300 -560 / -560 Weight 81.2 kg Intake: IV 1000 / 1000 1000 / 1000 NS Inj 1,000 ML @ 60 mls/hr IV. 1000 / 1000 1000 / 1000 CONT .[id number] [facility] Rx#:[id number] Oral 590 / 590 Output: Urine 1300 / 1300 2150 / 2150 Other: Date of Last Bowel Movement 07/09/18 07/09/18 07/09/18 # Bowel Movements 1 Narrative: GENERAL: Well-developed, well-nourished in no distress SKIN: Warm and dry. CARDIOVASCULAR: Regular rate and rhythm. LifeVest in place RESPIRATORY: No accessory muscle use. Clear to auscultation. Breath sounds equal bilaterally. GASTROINTESTINAL: Abdomen soft, non-tender, nondistended. MUSCULOSKELETAL: Extremities without clubbing, cyanosis, or edema. No obvious deformities. NEUROLOGICAL: Awake and alert. No obvious cranial nerve deficits. Motor grossly within normal limits. Five out of 5 muscle strength in the arms and legs. Normal speech. Results - Labs CBC & Chem 7: 07/08/18 16:14 07/09/18 23:01 Laboratory Results - last 24 hr 07/09/18 23:01 Sodium 137 Potassium 4.2 Chloride 104 Carbon Dioxide 28.5 Anion Gap 5 BUN 46 H Creatinine 1.82 H Estimated GFR 38 L Random Glucose 90 Calcium 7.8 L Magnesium 2.5 - Imaging ITS Impressions Abdomen/Bladder Ultrasound 07/08/18 00:00 CONCLUSION: 1. Negative renal sonogram. - Procedures EGD Assessment and Plan - Plan This is a 62-year-old male with a history of nonischemic cardiomyopathy status post cardiac catheterization on LifeVest and A. fib on Eliquis. Presents to ED for possible foreign body in the throat. Foreign body impaction in the esophagus status post EGD with foreign body removal. Stable tolerating regular diet, discontinue IV hydration. PPI. Acute renal failure with hyponatremia and hyperkalemia likely from dehydration and medications. Nonoliguric. Ultrasound showed no obstruction. Neg eosinophils. Improving discontinue IV hydration s/p tx for hyperkalemia patient received IV sodium bicarb, IV calcium chloride, IV insulin, nebulizations and Kayexalate. Avoid nephrotoxins hold lisinopril, Aldactone and Lasix. Consulted nephrology cleared for dc . Repeat BMP in one week DVT proph with SCD and Eliquis Discharge Planning: stable for dc
--- NOTE | 2018-07-10 11:29 | P.DS ---
Date of admission: 07/08/18 11:34 Primary care physician: UNKNOWN Anticipated date of discharge: 07/10/18 Brief History from admission: This is a 62-year-old male with a history of nonischemic cardiomyopathy status post cardiac catheterization on LifeVest and A. fib on Eliquis. Presents to ED for possible foreign body in the throat. Since yesterday morning after having breakfast burrito, he has not been able to eat or drink or keep anything down. States he always has problems swallowing pills. Denies chest pain, shortness of breath, abdominal pain, dizziness and palpitations. He was also found to be in acute renal failure BUN of 92 creatinine 5.68 and potassium of 5.8. EKG independently reviewed by me with sinus rhythm, IVCD with no significant change from previous. Denies voiding difficulties, history of renal failure and use of NSAIDs. He has been recently started on furosemide, Aldactone and lisinopril because of heart failure. Patient received IV fluid bolus in the ED and underwent urgent EGD for removal of foreign body impaction in the esophagus after treatment of hyperkalemia. At this time, patient has no complaints seen in [facility]. Telemetry shows sinus rhythm. Systolic blood pressure in the 90s. All other systems reviewed negative. Case discussed with nephrology. DS: Summary Hospital Course: This is a 62-year-old male with a history of nonischemic cardiomyopathy status post cardiac catheterization on LifeVest and A. fib on Eliquis. Presents to ED for possible foreign body in the throat. Foreign body impaction in the esophagus status post EGD with foreign body removal. Stable tolerating regular diet, discontinue IV hydration. PPI. Acute renal failure with hyponatremia and hyperkalemia likely from dehydration and medications. Nonoliguric. Ultrasound showed no obstruction. Neg eosinophils. Improving discontinue IV hydration s/p tx for hyperkalemia patient received IV sodium bicarb, IV calcium chloride, IV insulin, nebulizations and Kayexalate. Avoid nephrotoxins hold lisinopril, Aldactone and Lasix. Consulted nephrology cleared for dc . Repeat BMP in one week DVT proph with SCD and Eliquis - Time Spent with Patient Total time spent providing and/or coordinating discharge services: Greater than 30 minutes - Quality: VTE Deep Vein Thrombosis/Pulmonary Embolism Present on Admission: No Exam Vital signs: Vital Signs 07/09/18 12:00 07/09/18 13:56 07/09/18 16:00 Temperature 98.2 F 98.3 F Pulse Rate 52 L 54 L 54 L Respiratory Rate 16 Blood Pressure 91/56 L 91/56 L Pulse Oximetry 97 07/09/18 18:35 07/09/18 20:00 07/09/18 20:25 Temperature 98.7 F Pulse Rate 58 L 60 Respiratory Rate 18 Blood Pressure 119/69 139/65 Pulse Oximetry 97 07/09/18 23:52 07/10/18 00:00 07/10/18 04:00 Temperature 97.8 F 98.1 F Pulse Rate 46 L 43 L 49 L Respiratory Rate 18 18 Blood Pressure 90/47 L 120/72 Pulse Oximetry 07/10/18 07:51 07/10/18 10:42 Temperature 98.5 F Pulse Rate 55 L Respiratory Rate 16 Blood Pressure 131/76 Pulse Oximetry 96 96 Intake & Output 07/09/18 07/10/18 07/10/18 18:59 06:59 18:59 Intake Total 1000 / 1000 1590 / 1590 Output Total 1300 / 1300 2150 / 2150 Balance -300 / -300 -560 / -560 Weight 81.2 kg Intake: IV 1000 / 1000 1000 / 1000 NS Inj 1,000 ML @ 60 mls/hr IV. 1000 / 1000 1000 / 1000 CONT .[id number] [facility] Rx#:[id number] Oral 590 / 590 Output: Urine 1300 / 1300 2150 / 2150 Other: Date of Last Bowel Movement 07/09/18 07/09/18 07/09/18 # Bowel Movements 1 Narrative: GENERAL: Well-developed, well-nourished in no distress SKIN: Warm and dry. CARDIOVASCULAR: Regular rate and rhythm. LifeVest in place RESPIRATORY: No accessory muscle use. Clear to auscultation. Breath sounds equal bilaterally. GASTROINTESTINAL: Abdomen soft, non-tender, nondistended. MUSCULOSKELETAL: Extremities without clubbing, cyanosis, or edema. No obvious deformities. NEUROLOGICAL: Awake and alert. No obvious cranial nerve deficits. Motor grossly within normal limits. Five out of 5 muscle strength in the arms and legs. Normal speech. Results Procedures completed during hospitalization: EGD Labs on day of discharge: Labs from last 24 hours 07/09/18 23:01 Sodium 137 Potassium 4.2 Chloride 104 Carbon Dioxide 28.5 Anion Gap 5 BUN 46 H Creatinine 1.82 H Estimated GFR 38 L Random Glucose 90 Calcium 7.8 L Magnesium 2.5 - Impressions ITS Impressions Abdomen/Bladder Ultrasound 07/08/18 00:00 CONCLUSION: 1. Negative renal sonogram. Discharge Plan - Discharge Disposition Patient Disposition: Discharge Home - Discharge Condition Condition: Stable - Discharge Order Discharge Orders: Discharge Order (Routine); Ordered 07/10/18 Ordered By: Aurelio Fritz - Physicians Team Primary Care Provider: UNKNOWN, Attending Provider: Aurelio Fritz Other Providers: Ivon Garcia MD
[2018-07-10 14:24] VITALS: BP 141/82; PULSE 67; TEMP 97.4; O2SAT 95
--- NOTE | 2018-07-10 18:48 | P.PNGI ---
Subjective Interval history: Patient sitting up at bedside Reports tolerated diet well-regular soft Denies any difficulty swallowing Physical Exam Vital signs: Vital Signs 07/09/18 20:00 07/09/18 20:25 07/09/18 23:52 Temperature 98.7 F 97.8 F Pulse Rate 58 L 60 46 L Respiratory Rate 18 18 Blood Pressure 139/65 90/47 L Pulse Oximetry 97 07/10/18 00:00 07/10/18 04:00 07/10/18 07:51 Temperature 98.1 F 98.5 F Pulse Rate 43 L 49 L 55 L Respiratory Rate 18 16 Blood Pressure 120/72 131/76 Pulse Oximetry 96 07/10/18 10:42 07/10/18 12:00 07/10/18 14:00 Temperature 97.4 F L Pulse Rate 75 67 Respiratory Rate 16 Blood Pressure 141/82 H Pulse Oximetry 96 95 Intake & Output 07/09/18 07/10/18 07/10/18 18:59 06:59 18:59 Intake Total 1000 / 1000 1590 / 1590 Output Total 1300 / 1300 2150 / 2150 1275 / 1275 Balance -300 / -300 -560 / -560 -1275 / -1275 Weight 81.2 kg Intake: IV 1000 / 1000 1000 / 1000 NS Inj 1,000 ML @ 60 mls/hr IV. 1000 / 1000 1000 / 1000 CONT .[id number] [facility] Rx#:[id number] Oral 590 / 590 Output: Urine 1300 / 1300 2150 / 2150 1275 / 1275 Other: Date of Last Bowel Movement 07/09/18 07/09/18 07/09/18 # Bowel Movements 1 - Constitutional no acute distress - Routine HEENT Exam Head: Present: normocephalic - Routine Respiratory Exam Present: CTA bilaterally - Routine Abdominal Exam Present: soft, normoactive bowel sounds. Absent: tenderness - Routine Skin Exam Present: dry, warm - Routine Neurological Exam Present: alert Results - Labs CBC & Chem 7: 07/08/18 16:14 07/09/18 23:01 Laboratory Results - last 24 hr 07/09/18 23:01 Sodium 137 Potassium 4.2 Chloride 104 Carbon Dioxide 28.5 Anion Gap 5 BUN 46 H Creatinine 1.82 H Estimated GFR 38 L Random Glucose 90 Calcium 7.8 L Magnesium 2.5 - Procedures EGD Assessment and Plan (1) Esophageal obstruction due to food impaction Status: Acute Code(s): K22.2 - Esophageal obstruction; T18.128A - Food in esophagus causing other injury, initial encounter - Plan Esophageal food impaction 07/08/2018 EGD-- 1. There was a large amount of residual food seen in the mid esophagus 2. Schatzki ring was found in the mid esophagus and distal esophagus; Using a TTS-balloon the stricture was dilated up to 10mm; The balloon was held inflated for 30 seconds; Following this dilation, there was no change in the appearance of the stricture, 12mm with no change, then 13.5 with small mucosal rent, scope passed afterward. 3. Medium sized hiatal hernia 4. The mucosa of the stomach appeared normal 5. Normal duodenal mucosa Patient tolerating regular soft diet without any difficulty swallowing or discomfort. Plan Diet as tolerated Follow-up with the [facility] post discharge in 1 week Return in 8 weeks for EGD Chew food slowly Cut food into small pieces GI will sign off at this time, please notify for any further needs This patient has been seen by myself and Dr. Paez and this note is written on his behalf - Attending Attestation Dr. Paez
--- NOTE | 2018-07-10 20:15 | P.PNNP ---
Subjective Interval history: Patient seen in AM, alert, no SOB. Physical Exam Vital signs: Vital Signs 07/09/18 20:25 07/09/18 23:52 07/10/18 00:00 Temperature 97.8 F Pulse Rate 60 46 L 43 L Respiratory Rate 18 Blood Pressure 90/47 L Pulse Oximetry 07/10/18 04:00 07/10/18 07:51 07/10/18 10:42 Temperature 98.1 F 98.5 F Pulse Rate 49 L 55 L Respiratory Rate 18 16 Blood Pressure 120/72 131/76 Pulse Oximetry 96 96 07/10/18 12:00 07/10/18 14:00 Temperature 97.4 F L Pulse Rate 75 67 Respiratory Rate 16 Blood Pressure 141/82 H Pulse Oximetry 95 Intake & Output 07/10/18 07/10/18 07/11/18 06:59 18:59 06:59 Intake Total 1590 / 1590 Output Total 2150 / 2150 1275 / 1275 Balance -560 / -560 -1275 / -1275 Weight 81.2 kg Intake: IV 1000 / 1000 NS Inj 1,000 ML @ 60 mls/hr IV. 1000 / 1000 CONT .[id number] [facility] Rx#:[id number] Oral 590 / 590 Output: Urine 2150 / 2150 1275 / 1275 Other: Date of Last Bowel Movement 07/09/18 07/09/18 Narrative: GENERAL: Well-developed, well-nourished in no distress SKIN: Warm and dry. CARDIOVASCULAR: Regular rate and rhythm. LifeVest in place RESPIRATORY: No accessory muscle use. Clear to auscultation. Breath sounds equal bilaterally. GASTROINTESTINAL: Abdomen soft, non-tender, nondistended. MUSCULOSKELETAL: Extremities without clubbing, cyanosis, or edema. No obvious deformities. NEUROLOGICAL: Awake and alert. No obvious cranial nerve deficits. Motor grossly within normal limits. Five out of 5 muscle strength in the arms and legs. Normal speech. Assessment and Plan - Assessment (1) Acute renal failure Code(s): N17.9 - Acute kidney failure, unspecified Status: Acute Qualifiers: Acute renal failure type: unspecified Qualified Code(s): N17.9 - Acute kidney failure, unspecified (2) Esophageal obstruction due to food impaction Code(s): K22.2 - Esophageal obstruction; T18.128A - Food in esophagus causing other injury, initial encounter Status: Acute (3) Acute hyperkalemia Code(s): E87.5 - Hyperkalemia Status: Acute - Plan Patient with Acute kidney injury and Hyperkalemia. Most likely has an element of pre renal, and Hyperkalemia was due to Lisinopril and Aldactone was also contributing to high K level. Now the Creatinine is improving and K is normalized. Continue to hold the diuretics and Lisinopril Patient can be discharged. To follow with cardiology and PCP. Refer to Nephrology if needed.
== END 2018-07-10 16:51 | disposition home or self-care (01) ==
LOC: NEPE 09:07 → NEDA 11:34 → HCIN 14:48
PROVIDERS: ADMIT Internal Medicine; ATTEND Internal Medicine